=== PATIENT | female | born 1990 | race Caucasian/White ===

== ENCOUNTER 2017-09-30 17:43 | Emergency (ER) | payer OTHER ==
[~2017-09-30] VITALS: Ht 162.6 cm; Wt 98.0 kg
[~2017-09-30 17:43] MED LIST: PHEN16.22; PRE NATAL VITAMINS
[2017-09-30] MEDS ORDERED: KETAMINE HCL 50 MG/ML 10ML IV ONE (18:45)
[2017-09-30 19:40] LABS: HCG SCREEN NEGATIVE
[2017-09-30] MEDS ORDERED: MORPHINE SULFATE 4 MG/ML CPJ (NOT FOR IM USE) IV STA (19:52)
[2017-09-30] MEDS ORDERED: ONDANSETRON HCL 4MG/2ML VIAL IV STA (19:52)
[2017-09-30 22:10] VITALS: BP 188/99
== END 2017-09-30 22:00 | disposition home or self-care (01) ==
LOC: ER 17:43
DX: S43.005A Unspecified dislocation of left shoulder joint, initial encounter (principal); W19.XXXA Unspecified fall, initial encounter; Y93.89 Activity, other specified; Y92.89 Other specified places as the place of occurrence of the external cause; Y99.8 Other external cause status
CPT/HCPCS: 23650; 73030; 84703; 96374; 96375; 99152; 99285; J2270; J2405; J3490; Z7610; A4565

== ENCOUNTER 2019-01-25 10:39 | Emergency (ER) | payer SELFPAY ==
[~2019-01-25] VITALS: Ht 162.6 cm; Wt 110.0 kg
[2019-01-25] MEDS ORDERED: SODIUM CHLORIDE 0.9% 1,000 ML IV ONE (11:01)
[2019-01-25 12:52] LABS: BASOPHILS % 0.7 % (0.0-2.0); CHLORIDE 107 mEq/L (98-107); EOSINOPHILS % 1.9 % (0.0-5.0); HEMATOCRIT. 35.9 % (36.0-48.0); HEMOGLOBIN. 12.2 g/dL (12.0-16.0); LYMPHOCYTES % 24.9 % (20.0-50.0); MEAN CORPUSCULAR HEMOGLOBIN 29.1 pg (28.0-32.0); MEAN CORPUSCULAR VOLUME 85.6 fL (81.0-99.0); MEAN PLATELET VOLUME 8.2 fl (7.4-10.4); MONOCYTES % 7.1 % (2.0-8.0); NEUTROPHILS % 65.4 % (40.0-76.0); PLATELET 340 x1000/uL (130-400); RED BLOOD CELL COUNT 4.19 mill/uL (4.2-5.4); RED CELL DISTRIBUTION WIDTH 13.7 % (11.6-14.6)
[2019-01-25 12:57] LABS: ETHANOL BLOOD < 10 mg/dL
[2019-01-25 12:58] LABS: HCG SCREEN NEGATIVE
[2019-01-25 13:28] LABS: CLARITY URINE CLEAR (CLEAR); COLOR URINE YELLOW (YELLOW); KETONES URINE NEGATIVE (NEGATIVE); LEUKOCYTE ESTERASE URINE 2+ (NEGATIVE); NITRITE URINE NEGATIVE (NEGATIVE); OCCULT BLOOD URINE NEGATIVE (NEGATIVE); PH URINE 6.5 (4.5-8.0); PROTEIN URINE NEGATIVE (NEGATIVE); SPECIFIC GRAVITY URINE 1.015 (1.005-1.030); UROBILINOGEN URINE 0.2 E.U./dL (0.2-1.0)
[2019-01-25 13:43] LABS: OPIATES URINE SCREEN NEGATIVE (NEGATIVE); PHENCYCLIDINE URINE SCREEN NEGATIVE (NEGATIVE)
[2019-01-25 13:44] LABS: *AMPHETAMINES SCREEN URINE NEGATIVE (NEGATIVE); *BARBITURATES SCREEN URINE NEGATIVE (NEGATIVE); *BENZODIAZEPINES SCREEN URINE NEGATIVE (NEGATIVE); *COCAINE SCREEN URINE NEGATIVE (NEGATIVE); CANNABINOID URINE SCREEN NEGATIVE (NEGATIVE); METHADONE URINE SCREEN NEGATIVE (NEGATIVE)
[2019-01-25 14:34] VITALS: BP 138/85
== END 2019-01-25 14:00 | disposition home or self-care (01) ==
LOC: ER 10:39
DX: F41.1 Generalized anxiety disorder (principal); N39.0 Urinary tract infection, site not specified; G40.909 Epilepsy, unspecified, not intractable, without status epilepticus
CPT/HCPCS: 36415; 70450; 71045; 80053; 80305; 80320; 81003; 83880; 84484; 84703; 85025; 93005; 99284; J7030; G0480

== ENCOUNTER 2019-02-10 03:29 | Emergency (ER) | payer SELFPAY ==
[~2019-02-10] VITALS: Ht 162.6 cm; Wt 104.0 kg
[2019-02-10] MEDS ORDERED: MORPHINE SULFATE 4 MG/ML CPJ (NOT FOR IM USE) IV ONE (04:00)
[2019-02-10] MEDS ORDERED: ONDANSETRON HCL 4MG/2ML INJ IV ONE (04:00)
[2019-02-10] MEDS ORDERED: PROPOFOL 200MG/20ML VIAL IV ONE (04:30)
[2019-02-10] MEDS ORDERED: HYDROCODONE/ACETAMINOPHEN 5/325MG TABLET PO ONE (05:30)
[2019-02-10 07:11] VITALS: BP 108/84
== END 2019-02-10 07:13 | disposition home or self-care (01) ==
LOC: ER 04:19
DX: S43.085A Other dislocation of left shoulder joint, initial encounter (principal); X58.XXXA Exposure to other specified factors, initial encounter; Y93.89 Activity, other specified; Y92.89 Other specified places as the place of occurrence of the external cause; Y99.8 Other external cause status
CPT/HCPCS: 23650; 73020; 96374; 96375; 99152; 99285; J2270; J2405; J2704; Z7610; A4565

== ENCOUNTER 2019-04-05 17:25 | Emergency (ER) | payer SELFPAY ==
[~2019-04-05] VITALS: Ht 162.6 cm; Wt 115.9 kg
[2019-04-05 17:55] VITALS: BP 150/102
== END 2019-04-05 23:01 | disposition left against medical advice (07) ==
LOC: ER 17:25
DX: Z53.21 Procedure and treatment not carried out due to patient leaving prior to being seen by health care provider (principal)
CPT/HCPCS: 93005

== ENCOUNTER 2022-12-29 13:24 | Emergency (ER) | payer OTHER ==
[~2022-12-29] VITALS: Ht 167.6 cm; Wt 101.0 kg
[~2022-12-29 13:24] MED LIST changes: -PRE NATAL VITAMINS
[2022-12-29] MEDS ORDERED: ONDANSETRON HCL 4MG/2ML INJ IV ONE (13:45)
[2022-12-29] MEDS ORDERED: FENTANYL CITRATE/PF 50MCG/ML 2ML VIAL IV ONE (13:45)
[2022-12-29] MEDS ORDERED: SODIUM CHLORIDE 0.9% 1,000 ML IV ONE (13:45)
[2022-12-29] MEDS ORDERED: KETOROLAC 30MG/ML VIAL IV ONE (13:45)
[2022-12-29] MEDS ORDERED: PROPOFOL 200MG/20ML VIAL IV ONE ×2 (13:45→16:00)
[2022-12-29 15:04] LABS: HCG SCREEN NEGATIVE
[2022-12-29] MEDS ORDERED: PROPOFOL 200MG/20ML VIAL IV NR (15:30)
[2022-12-29 15:42] VITALS: TEMP 98; O2SAT 98
[2022-12-29 18:00] VITALS: BP 161/91; PULSE 79; RESP 16
[2022-12-29] MEDS ORDERED: NAPR-1129 MT (18:49)
== END 2022-12-29 19:09 | disposition home or self-care (01) ==
LOC: ER 13:41
DX: S43.005A Unspecified dislocation of left shoulder joint, initial encounter (principal); I10 Essential (primary) hypertension; X58.XXXA Exposure to other specified factors, initial encounter; Y93.89 Activity, other specified; Y92.89 Other specified places as the place of occurrence of the external cause; Y99.8 Other external cause status
CPT/HCPCS: 84703; 73030; 23650; 96361; 96374; 96375; 99152; 99291; J3010; J1885; J2405; J2704; J7030; Z7610 ×3; A4565